=== PATIENT | male | born 1940 | race Caucasian/White ===

== ENCOUNTER → 2021-08-03 | Outpatient (CLI) | payer MEDICARE | LOC: RAD 08:20 | DX: R10.84 Generalized abdominal pain (principal); K57.32 Diverticulitis of large intestine without perforation or abscess without bleeding | CPT/HCPCS: 74270 ==

== ENCOUNTER 2021-12-17 16:11 | Emergency (ER) | payer MEDICARE ==
[2021-12-17 19:40] LABS: BUN/CREATININE RATIO 18 (0-10)
[2021-12-17 19:41] LABS: HEMOGLOBIN 12.8 gm/dl (14.0-17.5); RED BLOOD COUNT 4.24 M/UL (4.20-5.50); WHITE BLOOD COUNT 7.9 K/UL (4.5-11.0)
== END 2021-12-17 20:34 | disposition home or self-care (01) ==
LOC: ER1 16:11
PROVIDERS: Preventive Medicine Occupational Medicine
DX: R00.2 Palpitations (principal); I10 Essential (primary) hypertension; I25.10 Atherosclerotic heart disease of native coronary artery without angina pectoris; Z20.822 Contact with and (suspected) exposure to COVID-19
CPT/HCPCS: 0241U; 71045; 80053; 82550; 82553; 83690; 83874; 83880; 84484; 85025; 85652; 86140; 93005; 99285